=== PATIENT | male | born 1980 | race Two or more races ===

== ENCOUNTER 2019-04-19 00:47 | Emergency (ER) | payer SELFPAY ==
[~2019-04-19] VITALS: Ht 180.3 cm; Wt 87.0 kg
[2019-04-19 01:27] LABS: ALANINE AMINOTRANSFERASE 26 U/L (12-78); ALBUMIN 3.9 g/dL (3.4-5.0); ANION GAP 9 mmol/L (5-15); CALCIUM 8.2 mg/dL (8.5-10.1); CHLORIDE 111 mmol/L (98-107); CREATININE 0.74 mg/dL (0.7-1.3)
[2019-04-19 01:30] LABS: BASOPHILS # (AUTO) 0.07 x10^3/uL (0-0.1); BASOPHILS % (AUTO) 1 % (0-1); EOSINOPHILS # (AUTO) 0.36 x10^3/uL (0-0.4); EOSINOPHILS % (AUTO) 3 % (1-7); LYMPHOCYTES % (AUTO) 33 % (22-44); MD NO; MEAN CORPUSCULAR HEMOGLOBIN 34.4 pg (27.5-34.5); MEAN CORPUSCULAR HGB CONC 33.6 g/dL (33.2-36.2); MEAN CORPUSCULAR VOLUME 102.5 fL (81-97); MEAN PLATELET VOLUME 8.1 fL (7.4-10.4); MONOCYTES # (AUTO) 0.69 x10^3/uL (0.2-0.8); MONOCYTES % (AUTO) 7 % (2-9); NEUTROPHILS # (AUTO) 5.97 x10^3/uL (1.8-6.8); NEUTROPHILS % (AUTO) 56 % (42-75); PLATELET COUNT 304 x10^3/uL (130-400); RED BLOOD COUNT 4.24 x10^6/uL (4.38-5.82); RED CELL DISTRIBUTION WIDTH 13.4 % (9.4-14.8)
[2019-04-19 01:31] LABS: ALKALINE PHOSPHATASE 69 U/L (45-117); BILIRUBIN,TOTAL 0.2 mg/dL (0.2-1.0); TOTAL PROTEIN 7.8 g/dL (6.4-8.2)
--- NOTE | 2019-04-19 03:16 | NUR ---
PT PLACED ON NC 2L O2. NO ACUTE DISTRESS AT THIS TIME. WILL CONT TO MONITOR.
--- NOTE | 2019-04-19 04:38 | NUR ---
PT MOTHER AND FATHER AT BEDSIDE. RN OFFERED PARENTS TO GO HOME AND WE WILL CALL WHEN PT IS APPROPRIATE FOR DISCHARGE. PARENTS DECLINE AND STATE THEY WANT TO STAY WITH PT.
--- NOTE | 2019-04-19 05:50 | NUR ---
PT AWAKE AT THIS TIME, A&O TO SELF AND PLACE AT THIS TIME. PT STATES HE WANTS TO LEAVE. RN ENCOURAGED PT TO CONT TO SLEEP HE CANNOT STAY AWAKE FOR A CONVERSATION.
[2019-04-19 06:23] VITALS: BP 113/70
--- NOTE | 2019-04-19 06:23 | NUR ---
ATTEMPTED TO AMBULATE PT, PT HAD TO SIT BACK DOWN DUE TO FEELING DIZZY. BEDRAILS UP FOR PT SAFETY.
--- NOTE | 2019-04-19 06:34 | NUR ---
PT AMBULATED TO RESTROOM WITH STEADY GAIT, PT DENIES FEELING DIZZY.
== END 2019-04-19 07:03 | disposition home or self-care (01) ==
LOC: ED 06:15
DX: F10.220 Alcohol dependence with intoxication, uncomplicated (principal); G31.2 Degeneration of nervous system due to alcohol; Z72.9 Problem related to lifestyle, unspecified; Y90.9 Presence of alcohol in blood, level not specified
CPT/HCPCS: 36415; 80053; 80307; 85025; 99283